=== PATIENT | female | born 1975 | race Two or more races ===

== ENCOUNTER 2022-12-25 14:27 | Outpatient (REF) | payer OTHER, SELFPAY ==
--- NOTE | ~2022-12-25 | MM_ITS ---
EXAMINATION: MM SCREENING DIGITAL BREAST TOMOSYNTHESIS, BILATERAL CLINICAL INFORMATION: Screening. Asymptomatic. The lifetime risk of breast cancer based on the Tyrer-Cuzick Model is 6.9%. COMPARISON: Mammography: This study is compared with the only prior mammogram from 2004. TECHNIQUE: Digital breast tomosynthesis is performed in both the craniocaudal and mediolateral oblique views along with computer-aided detection (CAD). Synthesized 2D images are generated from the tomosynthesis. FINDINGS: The breasts are heterogeneously dense, which may obscure small masses (ACR BI-RADS breast composition Category c). There are no significant masses, abnormal calcifications, or other abnormalities. MM/MM tomosynthesis screening BI IMPRESSION: No mammographic evidence of malignancy. ASSESSMENT: BI-RADS BI-RADS 1 - Negative RECOMMENDATION: Routine annual mammography screening. 1 year F/U This examination should not preclude the clinical evaluation of a suspicious palpable abnormality. This patient's information was entered into a reminder system with a target due date for their next mammogram.
== END 2022-12-25 14:28 | disposition home or self-care (01) ==
LOC: HO.MAMMO 14:27
PROVIDERS: PCP Internal Medicine; Visit Provider Internal Medicine
DX: Z12.31 Encounter for screening mammogram for malignant neoplasm of breast (principal)
CPT/HCPCS: 77063; 77067

== ENCOUNTER → 2022-12-25 14:30 | Outpatient (BNV) | payer OTHER, SELFPAY | PROVIDERS: PCP Internal Medicine; Visit Provider Radiology Diagnostic Radiology | DX: Z12.31 Encounter for screening mammogram for malignant neoplasm of breast (principal) | CPT/HCPCS: 77063; 77067 ==

== ENCOUNTER 2023-01-15 13:33 | Outpatient (REF) | payer OTHER, SELFPAY ==
[2023-01-15 13:40] LABS: MANUAL DIFF FLAG NO
[2023-01-15 14:24] LABS: Basophils Percent Auto 0.8 % (0-2); Eosinophils Absolute Auto 0.2 X10*3/uL (0.0-0.4); Eosinophils Percent Auto 4.1 % (0-4); Hematocrit 30.3 % (37.0-47.0); Hemoglobin 9.7 g/dl (12.0-16.0); Imm Gran Abs Auto 0.01 X10*3/uL (0.00-0.03); Imm Gran Pct Auto 0.2 % (0.0-0.4); Lymphocytes Absolute Auto 1.4 X10*3/uL (1.2-4.9); Lymphocytes Percent Auto 27.8 % (20-40); Mean Corpuscular Hemoglobin 26.2 pg (27.0-33.0); Mean Corpuscular Volume 81.9 fL (80.0-98.0); Mean Platelet Volume 9.4 fL (9.4-12.3); Monocytes Absolute Auto 0.6 X10*3/uL (0.1-1.2); Monocytes Percent Auto 12.2 % (2-11); Neutrophils Absolute Auto 2.8 x10*3/uL (2.0-8.3); Neutrophils Percent Auto 54.9 % (45-73); Platelet Count 315 X10*3/uL (160-400); Red Cell Distribution Width 14.6 % (11.0-16.0); White Blood Count 5.2 X10*3/uL (4.8-10.8)
[2023-01-15 15:31] LABS: Alanine Aminotransferase 53 U/L (0-31); Albumin Level 4.1 g/dL (3.5-5.0); Alkaline Phosphatase 149 U/L (39-117); Anion Gap 11 (12-20); Aspartate Amino Transferase 41 U/L (5-31); Bilirubin Total 0.2 mg/dL (0.0-1.0); Blood Urea Nitrogen 15 mg/dL (9-16); Calcium 9.5 mg/dL (8.4-10.2); Carbon Dioxide 26 mmol/L (22-29); Chloride 107 mmol/L (96-108); Estimated Glomerular Filt Rate > 60; Glucose Random 93 mg/dL (60-115); Potassium 3.9 mmol/L (3.3-5.1); Sodium 140 mmol/L (135-145); Total Protein 7.5 g/dL (6.5-8.0)
[2023-01-15 15:48] LABS: Thyroid Stimulating Hormone 0.37 uIU/mL (0.32-4.0)
== END 2023-01-15 13:34 | disposition home or self-care (01) ==
LOC: HO.LAB 13:33
PROVIDERS: PCP Internal Medicine; Visit Provider Internal Medicine
DX: Z00.00 Encounter for general adult medical examination without abnormal findings (principal); E04.1 Nontoxic single thyroid nodule; R53.83 Other fatigue
CPT/HCPCS: 36415; 80053; 84439; 84443; 85025

== ENCOUNTER 2023-06-10 13:36 | Outpatient (REF) | payer OTHER, SELFPAY ==
[2023-06-15 13:29] LABS: Mitochondrial Antibodies NEGATIVE (NEGATIVE)
[2023-06-16 07:33] LABS: Smooth Muscle Antibody 35 U (<20)
[2023-06-17 11:04] LABS: Anti Nuclear Antibody Screen POSITIVE (NEGATIVE)
== END 2023-06-10 13:37 | disposition home or self-care (01) ==
LOC: HO.LAB 13:36
PROVIDERS: PCP Internal Medicine; Visit Provider Internal Medicine
DX: D50.8 Other iron deficiency anemias (principal); E04.1 Nontoxic single thyroid nodule; G25.81 Restless legs syndrome; R74.01 Elevation of levels of liver transaminase levels
CPT/HCPCS: 36415; 82728; 85025; 86015; 86038; 86039; 86381; 86704; 86706; 86709; 86803; 87340

== ENCOUNTER 2023-11-05 07:32 | Day surgery (SDC) | payer OTHER, SELFPAY ==
[2023-11-03 14:19] VITALS: BMI 24.2
--- NOTE | 2023-11-04 09:08 | P.CONAN_ITS ---
Documented by User: Ivana Rollins NP 11/04/23 09:08 HPI - Anesthesia Eval Consult details Narrative: 48yo F for Colonoscopy [facility] Past Medical History Medical History (Updated 11/03/23 @ 14:18 by Arianna Caraballo RN) Nephrolithiasis Anemia Surgical History Surgical History (Updated 11/03/23 @ 14:18 by Arianna Caraballo RN) Hx of cystoscopy Social History Social History Patient Tobacco Use Status: Never used Tobacco Use of substances other than those prescribed or required for medical reasons: No Are you DNR?: No Advance Directives: No Advance Directives Information Provided: Yes Meds Allergies Allergy/AdvReac Type Severity Reaction Status Date / Time No Known Allergies Allergy Verified 11/05/23 07:42 Home Medications ?Medication ?Instructions ?Recorded ?Confirmed ?Last Taken ?Type No Known Home Meds 11/03/23 11/03/23 Unknown History Exam Height,Weight and Vital Signs: Height 5 ft 4 in Weight 63.957 kg Assessment and Plan Assessment Anesthesia Assessment: Chart Reviewed Documented by User: Niko Clark MD 11/05/23 08:08 [facility] Past Medical History Medical History (Updated 11/03/23 @ 14:18 by Arianna Caraballo RN) Nephrolithiasis Anemia Family History Family history of problems with anesthesia: No Surgical History Surgical History (Updated 11/03/23 @ 14:18 by Arianna Caraballo RN) Hx of cystoscopy History of Problems with Anesthesia: No Social History Social History Patient Tobacco Use Status: Never used Tobacco Use of substances other than those prescribed or required for medical reasons: No Are you DNR?: No Advance Directives: No Advance Directives Information Provided: Yes Meds Allergies Allergy/AdvReac Type Severity Reaction Status Date / Time No Known Allergies Allergy Verified 11/05/23 07:42 Home Medications ?Medication ?Instructions ?Recorded ?Confirmed ?Last Taken ?Type No Known Home Meds 11/03/23 11/03/23 Unknown History Exam Airway Mallampati Class: II TM Dist: >3cm Neck ROM: Full Assessment and Plan Assessment Anesthesia Assessment: Anesthesia Plan Discussed Final Anesthetic Review Family History of Problems with Anesthesia: No History of Problems with Anesthesia: No NPO: Yes ASA Class: I Patient Risk: Low Procedure Risk: Low Anesthetic Plan Anesthetic Plan: TIVA Disposition: Standard PACU
[2023-11-05 07:36] VITALS: BMI 24.0
[2023-11-05 07:52] LABS: UPreg QC Valid YES; Urine Pregnancy NEGATIVE (NEGATIVE)
[2023-11-05 07:58] VITALS: BP 119/88; PULSE 119; RESP 16; TEMP 36.3; O2SAT 99
[2023-11-05] MEDS: Lactated Ringers 1,000 ML 100 ML IVCONT (07:59)
--- NOTE | 2023-11-05 08:26 | P.HPSUR_ITS ---
Pre-Procedural Eval Section A - 24 Hr Update-Section A only Date of Service: 11/05/23 Section B - Complete if H&P > 30 days Chief Complaint: Encounter for screening for malignant neoplasm of Details of Present Illness: see H&P no changes Relevant Family History (Specify if Yes): No Relevant Social History: None Present Medications: see Short Stay Collaborative assessment Medical History: No relevant PMH History of Previous Operations: No relevant previous surgery Allergies: Allergies Allergy/AdvReac Type Severity Reaction Status Date / Time No Known Allergies Allergy Verified 11/05/23 07:42 Review of Systems Sugical H&P ROS: Negative: Constitution, Cardiovascular, Respiratory, Neurological, Psychiatric, Hem-Onc, Allergic/Immunologic, Gastrointestinal, Genitourinary, Musculoskeletal, Integumentary, Endocrine and Eyes/Ears/No se/Throat Exam Surgical H&P Exam: Normal: HEENT, Normal: Heart, Normal: Lungs, Normal: Extremities, Normal: Abdomen, Normal: Skin and Normal: Neurological Plan Diagnosis/Plan: Unchanged I have reviewed the history and physical and performed a pertinent physical examination on my patient. No changes have occurred unless specified. Time Spent With Patient Time: Total time managing care of this patient today ____ minutes.
[2023-11-05 09:12] VITALS: BP 110/66; PULSE 74; RESP 12; TEMP 36.6; O2SAT 100
--- NOTE | 2023-11-05 09:24 | OP_ITS ---
DATE OF SERVICE: 11/05/2023 SURGEON: Collins Bo MD INDICATIONS: Colon cancer screening. PREOPERATIVE DIAGNOSIS: POSTOPERATIVE DIAGNOSIS: PROCEDURE PERFORMED: Colonoscopy to the terminal ileum with biopsy. ESTIMATED BLOOD LOSS: COMPLICATIONS: ANESTHESIA: Monitored anesthesia care. ASSISTANTS: SPECIMENS: DESCRIPTION OF PROCEDURE: A history and physical were performed. The risks and benefits of the procedure were explained to the patient and informed consent was obtained. The patient was placed in the left lateral decubitus position. A digital rectal exam was performed and was found to be normal. The Olympus pediatric video colonoscope was introduced into the rectum and advanced to the cecum. The cecum was identified by transillumination, palpation, and identification of ileocecal valve. Examination was performed, and the scope was removed. She tolerated the procedure well and was returned to recovery area in stable condition. FINDINGS: The terminal ileum was examined and appeared normal. The visualized colonic mucosa was normal. The quality of the prep was good. No polyps were identified. There was nonspecific inflammation in the rectum with some focal erythema, and loss of vascular pattern. Biopsies were obtained from the mucosa. This could have been related to the prep. Retroflexed examination was otherwise normal. IMPRESSION: Normal colonoscopy. RECOMMENDATIONS: Follow up biopsy results. 10 year colon recall. MD GLORIA Hernandez/MODL / [id number] MTDD
[2023-11-05 09:27] VITALS: BP 104/64; PULSE 76; RESP 16; O2SAT 100
[2023-11-05 09:42] VITALS: BP 106/62; PULSE 70; RESP 16; TEMP 36.6; O2SAT 100
== END 2023-11-05 10:19 | disposition home or self-care (01) ==
PROVIDERS: Nurse Practitioner; PCP Internal Medicine; Visit Provider Internal Medicine Gastroenterology
PROC: 0DJD8ZZ Inspection of Lower Intestinal Tract, Via Natural or Artificial Opening Endoscopic (ICD-10-PCS; CPT 45378; principal; 2023-11-05 09:30)
DX: Z12.11 Encounter for screening for malignant neoplasm of colon (principal); D64.9 Anemia, unspecified
CPT/HCPCS: 45380; 81025; 88305; J2704

== ENCOUNTER 2024-01-12 13:45 | Outpatient (REF) | payer OTHER, SELFPAY ==
--- NOTE | ~2024-01-12 | MM_ITS ---
EXAMINATION: MM SCREENING DIGITAL BREAST TOMOSYNTHESIS, BILATERAL CLINICAL INFORMATION: Screening. Asymptomatic. COMPARISON: Mammography: This study is compared with prior exams dating back to 2022. TECHNIQUE: Digital breast tomosynthesis is performed in both the craniocaudal and mediolateral oblique views along with computer-aided detection (CAD). Synthesized 2D images are generated from the tomosynthesis. FINDINGS: The breasts are heterogeneously dense, which may obscure small masses (ACR BI-RADS breast composition Category c). There are no significant masses, abnormal calcifications, or other abnormalities. MM/MM tomosynthesis screening BI IMPRESSION: No mammographic evidence of malignancy. ASSESSMENT: BI-RADS BI-RADS 1 - Negative RECOMMENDATION: Routine annual mammography screening. 1 year F/U This examination should not preclude the clinical evaluation of a suspicious palpable abnormality. This patient's information was entered into a reminder system with a target due date for their next mammogram. Electronically signed by: Terri Santiago MD 02/08/2024 07:40 AM EDT
== END 2024-01-12 13:46 | disposition home or self-care (01) ==
LOC: HO.MAMMO 13:45
PROVIDERS: PCP Internal Medicine; Visit Provider Internal Medicine
DX: Z12.31 Encounter for screening mammogram for malignant neoplasm of breast (principal)
CPT/HCPCS: 77063; 77067

== ENCOUNTER → 2024-01-12 13:45 | Outpatient (BNV) | payer OTHER, SELFPAY | PROVIDERS: PCP Internal Medicine; Visit Provider Radiology Diagnostic Radiology | DX: Z12.31 Encounter for screening mammogram for malignant neoplasm of breast (principal) | CPT/HCPCS: 77063; 77067 ==

== ENCOUNTER 2024-02-23 12:49 | Outpatient (REF) | payer OTHER, SELFPAY ==
[2024-02-23 13:04] LABS: MANUAL DIFF FLAG NO
[2024-02-23 13:30] LABS: Basophils Percent Auto 0.7 % (0-2); Eosinophils Absolute Auto 0.5 X10*3/uL (0.0-0.4); Eosinophils Percent Auto 9.4 % (0-4); Hematocrit 34.2 % (37.0-47.0); Hemoglobin 11.2 g/dl (12.0-16.0); Imm Gran Abs Auto 0.06 X10*3/uL (0.00-0.03); Imm Gran Pct Auto 1.1 % (0.0-0.4); Lymphocytes Absolute Auto 1.3 X10*3/uL (1.2-4.9); Lymphocytes Percent Auto 23.8 % (20-40); Mean Corpuscular HGB Conc 32.7 g/dl (31.0-35.0); Mean Corpuscular Hemoglobin 28.8 pg (27.0-33.0); Mean Corpuscular Volume 87.9 fL (80.0-98.0); Mean Platelet Volume 9.5 fL (9.4-12.3); Monocytes Absolute Auto 0.6 X10*3/uL (0.1-1.2); Monocytes Percent Auto 10.1 % (2-11); Neutrophils Percent Auto 54.9 % (45-73); Platelet Count 302 X10*3/uL (160-400); Red Blood Count 3.89 X10*6/uL (4.20-5.50); Red Cell Distribution Width 13.4 % (11.0-16.0); White Blood Count 5.5 X10*3/uL (4.8-10.8)
[2024-02-23 14:28] LABS: Ferritin 17 ng/mL (10-250)
[2024-02-23 14:31] LABS: Anion Gap 9 (12-20)
[2024-02-23 14:35] LABS: Alanine Aminotransferase 102 U/L (0-31); Albumin Level 3.7 g/dL (3.5-5.0); Alkaline Phosphatase 234 U/L (39-117); Aspartate Amino Transferase 117 U/L (5-31); Bilirubin Total 0.1 mg/dL (0.0-1.0); Blood Urea Nitrogen 14 mg/dL (9-16); Calcium 9.4 mg/dL (8.4-10.2); Carbon Dioxide 27 mmol/L (22-29); Chloride 107 mmol/L (96-108); Estimated Glomerular Filt Rate > 60; Glucose Random 102 mg/dL (60-115); Potassium 4.3 mmol/L (3.3-5.1); Sodium 139 mmol/L (135-145); Total Protein 7.2 g/dL (6.5-8.0)
[2024-02-24 17:04] LABS: Follicle Stimulating Hormone 22.6 mIU/mL
== END 2024-02-23 12:50 | disposition home or self-care (01) ==
LOC: HO.LAB 12:49
PROVIDERS: PCP Internal Medicine; Visit Provider Internal Medicine
DX: Z00.00 Encounter for general adult medical examination without abnormal findings (principal); R74.01 Elevation of levels of liver transaminase levels; N95.1 Menopausal and female climacteric states; D50.8 Other iron deficiency anemias
CPT/HCPCS: 36415; 80053; 82728; 83001; 85025

== ENCOUNTER 2024-03-21 09:37 | Outpatient (REF) | payer OTHER, SELFPAY ==
--- NOTE | ~2024-03-21 | US_ITS ---
EXAMINATION: US ABDOMEN COMPLETE CLINICAL INFORMATION: Elevated LFTs. COMPARISON: None available. TECHNIQUE: Real-time imaging of the abdominal viscera. FINDINGS: PANCREAS: Normal. ABDOMINAL AORTA: The proximal, mid, and distal segments are normal in caliber. INFERIOR VENA CAVA: Visualized portions are normal. LIVER: The liver is normal in size. The liver contour is normal. There is borderline increased liver parenchymal echogenicity suggesting hepatic steatosis. No focal hepatic lesion. There is no intrahepatic biliary duct dilatation seen. GALLBLADDER: Normal. The gallbladder is physiologically distended without evidence of stones, sludge, polyps, wall thickening or pericholecystic fluid. COMMON BILE DUCT: Normal in caliber measuring 0.4 cm in diameter. RIGHT KIDNEY: Normal. No hydronephrosis. No renal calculi or focal parenchymal lesions. The kidney measures 9.4 cm in maximum dimension. LEFT KIDNEY: Normal. No hydronephrosis. No renal calculi or focal parenchymal lesions. The kidney measures 10.6 cm in maximum dimension. SPLEEN: Normal. The spleen measures 8.9 cm in maximum dimension. FREE FLUID: None. US/US abdomen complete IMPRESSION: Borderline increased echogenicity of the liver suggesting hepatic steatosis. Electronically signed by: Willy Sheffield MD 05/20/2024 12:15 PM [facility]
== END 2024-03-21 09:38 | disposition home or self-care (01) ==
LOC: HO.US 09:37
PROVIDERS: PCP Internal Medicine; Visit Provider Internal Medicine
DX: R74.01 Elevation of levels of liver transaminase levels (principal)
CPT/HCPCS: 76700

== ENCOUNTER 2024-06-20 12:44 | Outpatient (REF) | payer OTHER, SELFPAY ==
[2024-06-20 14:18] LABS: Alanine Aminotransferase 24 U/L (0-31); Albumin Level 3.9 g/dL (3.5-5.0); Alkaline Phosphatase 126 U/L (39-117); Aspartate Amino Transferase 26 U/L (5-31); Bilirubin Direct < 0.2 mg/dL (0.0-0.5); Bilirubin Total 0.2 mg/dL (0.0-1.0); Iron 55 mcg/dL (30-160); Percent Iron Saturation 17 % (15-50); Total Iron Binding Capacity 328 mcg/dL (228-428); Unsaturated Iron Binding 273 ug/dL
[2024-06-20 14:29] LABS: Ferritin 14 ng/mL (10-250)
[2024-06-21 10:39] LABS: Alpha 1 Anti-trypsin 136 mg/dL (83-199); Ceruloplasmin 25 mg/dL (14-48)
[2024-06-27 00:49] LABS: FIB-ALT 17 U/L (6-29); FIB-Alpha-2-Macroglobulin 160 mg/dL (106-279); FIB-Apolipoprotein A1 131 mg/dL (101-198); FIB-GGT 53 U/L (3-70); FIB-Haptoglobin 172 mg/dL (43-212); FIB-Total Bilirubin 0.3 mg/dL (0.2-1.2); Liver Fibrosis Score 0.11; Liver Fibrosis Stage F0; Nec Inflam Act Grade A0; Nec Inflam Act Score 0.05; Reference ID 5294466
== END 2024-06-20 12:45 | disposition home or self-care (01) ==
LOC: HO.LAB 12:44
PROVIDERS: PCP Internal Medicine; Visit Provider Internal Medicine Gastroenterology
DX: R79.89 Other specified abnormal findings of blood chemistry (principal)
CPT/HCPCS: 36415; 80076; 81596; 82103; 82390; 82728; 83540

== ENCOUNTER 2024-08-29 13:50 | Outpatient (REF) | payer OTHER, SELFPAY ==
[2024-08-29 14:10] LABS: MANUAL DIFF FLAG NO
[2024-08-29 14:31] LABS: Basophils Percent Auto 0.6 % (0-2); Eosinophils Absolute Auto 0.3 X10*3/uL (0.0-0.4); Eosinophils Percent Auto 6.4 % (0-4); Hematocrit 33.8 % (37.0-47.0); Hemoglobin 11.2 g/dl (12.0-16.0); Imm Gran Abs Auto 0.01 X10*3/uL (0.00-0.03); Imm Gran Pct Auto 0.2 % (0.0-0.4); Lymphocytes Absolute Auto 1.3 X10*3/uL (1.2-4.9); Mean Corpuscular HGB Conc 33.1 g/dl (31.0-35.0); Mean Corpuscular Volume 87.6 fL (80.0-98.0); Mean Platelet Volume 9.4 fL (9.4-12.3); Monocytes Absolute Auto 0.6 X10*3/uL (0.1-1.2); Monocytes Percent Auto 11.9 % (2-11); Neutrophils Absolute Auto 2.5 x10*3/uL (2.0-8.3); Neutrophils Percent Auto 52.9 % (45-73); Platelet Count 301 X10*3/uL (160-400); Red Blood Count 3.86 X10*6/uL (4.20-5.50); White Blood Count 4.7 X10*3/uL (4.8-10.8)
[2024-08-29 15:16] LABS: Alanine Aminotransferase 47 U/L (0-31); Alkaline Phosphatase 160 U/L (39-117); Anion Gap 8 (12-20); Aspartate Amino Transferase 31 U/L (5-31); Bilirubin Total 0.4 mg/dL (0.0-1.0); Blood Urea Nitrogen 13 mg/dL (9-16); Calcium 9.3 mg/dL (8.4-10.2); Carbon Dioxide 30 mmol/L (22-29); Chloride 107 mmol/L (96-108); Estimated Glomerular Filt Rate > 60; Glucose Random 87 mg/dL (60-115); Potassium 4.3 mmol/L (3.3-5.1); Sodium 141 mmol/L (135-145); Total Protein 7.3 g/dL (6.5-8.0)
[2024-08-29 15:31] LABS: Ferritin 13 ng/mL (10-250)
== END 2024-08-29 13:51 | disposition home or self-care (01) ==
LOC: HO.LAB 13:50
PROVIDERS: PCP Internal Medicine; Visit Provider Internal Medicine
DX: D50.8 Other iron deficiency anemias (principal); M22.2X2 Patellofemoral disorders, left knee; M25.512 Pain in left shoulder; R74.01 Elevation of levels of liver transaminase levels
CPT/HCPCS: 36415; 80053; 82728; 85025

== ENCOUNTER 2024-09-28 12:10 | Outpatient (REF) | payer OTHER, SELFPAY ==
[2024-09-28 13:05] LABS: Alanine Aminotransferase 32 U/L (0-31); Alkaline Phosphatase 123 U/L (39-117); Aspartate Amino Transferase 38 U/L (5-31); Bilirubin Direct < 0.2 mg/dL (0.0-0.5); Bilirubin Total 0.2 mg/dL (0.0-1.0); Total Protein 7.4 g/dL (6.5-8.0)
== END 2024-09-28 12:11 | disposition home or self-care (01) ==
LOC: HO.LAB 12:10
PROVIDERS: PCP Internal Medicine; Visit Provider Internal Medicine Gastroenterology
DX: R79.89 Other specified abnormal findings of blood chemistry (principal)
CPT/HCPCS: 36415; 80076

== ENCOUNTER 2025-04-11 13:43 | Outpatient (REF) | payer OTHER, SELFPAY ==
--- OUTSIDE RECORDS SUMMARY | 2023-11-05 03:40 | XMS_ITS ---
Author Organization [facility] Address [address] [place] [address] Care Team Providers Care Labor Economics Professor Name Role Phone Rosy Ibarra Primary Care Provider Unavailab Collins Purcell Jr REASON FOR VISIT screening Encounters Encounter Location Date Provider Diagnosis [facility] [address] [place] [phone] 11/05/2023 Collins Bo Jr Encounter for screening colonoscopy Z12.11 Assessments Encounter Date Diagnosis (ICD Code) Assessment Notes Treatment Notes Treatment Clinical Notes Section Notes 11/05/2023 Encounter for screening colonoscopy (ICD-10 - Z12.11) Plan Of Treatment Next Appt Details Provider Name:Collins lester Jr, 05/09/2025 11:20:00 AM, [address] [facility], [address], [place], [address], Progress Notes * BENTLEY GOLDSMITHDOB: [birth year] (50 yo F)Acc No.[id number]:11/05/2023 COLON WITH MAC Patient: JASSON SANTILLANICA Provider: Lexis Bo MD :1975 A ge:48 Y S ex:Female Date:11/05/2023 Address:[address] [place] [address] [place], [id number] Pcp:Rosy Ibarra Subjective: * Chief Complaints: * 1 . Screening. * Medical History: Objective: * Vitals: Assessment: * Assessment: 1. E ncounter for screening colonoscopy - Z12.11 (Primary) Plan: * Treatment: * Procedure Codes: 4 5380 COLONOSCOPY AND BIOPSY * * The named appointment provid er may or may not be the originator of this progress note, and it is not deemed complete until electronically signed by the appointment provider. Sign off status: Pending * Provider: Lexis Bo MD Date: 0 11/05/2023 Generated for Kim melgar/Ariel/Melaniaitting on: 06/11/2024 04:35 PM EST
--- OUTSIDE RECORDS SUMMARY | 2025-01-04 08:55 | XMS_ITS ---
Author Organization [facility] Address [address] [place] [address] Care Team Providers Care Measurement Advisor Name Role Phone Rosy Ibarra Primary Care Provider Unavailab tana Bo Jr, Collins Bruno [phone] REASON FOR VISIT Patient presents today for a 3 month f/u elevated liver blood work Encounters Encounter Location Date Provider Diagnosis [facility] [address] [place] [address] 01/04/2025 Collins Bo Jr Plan Of Treatment Next Appt Details Provider Name:Collins lester Jr, 05/09/2025 11:20:00 AM, [address], [address], [place], [address], Progress Notes * BENTLEY GOLDSMITHDOB: [birth year] (50 yo F)Acc No.[id number]:01/04/2025 Progress Notes Patient: BENTLEY SANTILLAN Provider: Lexis Bo MD :1975 A ge:50 Y S ex:Female Date:01/04/2025 Address: [address] [place], [place] Pcp:Rosy Ibarra Subjective: * Chief Complaints: * 1 . Patient presents today for a 3 month f/u elevated liver blood work. * Medical History: Objective: * Vitals: Assessment: Plan: * Treatment: * * The named appointment provid er may or may not be the originator of this progress note, and it is not deemed complete until electronically signed by the appointment provider. Sign off status: Pending * Provider: Lexis Bo MD Date: 0 01/04/2025 Generated for Kim melgar/Ariel/Ama on: 06/11/2024 04:36 PM EST
--- OUTSIDE RECORDS SUMMARY | 2025-04-11 16:36 | XMS_ITS | Patient Health Record ---
Author Organization [facility] Address [address] [place] [address] Care Team Providers Care Plasterer Apprentice Name Role Phone Donnholden Rosy Primary Care Provider Unavailab Clolins Purcell Jr Unavailable Allergies No Known Allergies Results Component Value Reference Range Notes Liver Panel Reviewed date:06/26/2024 12:51:04 PM Interpretation: Performing Lab:[facility], [address] [place] [phone] Notes/Report: Bilirubin Total 0.2 0.0-1.0 mg/dL Bilirubin Direct < 0.2 0.0-0.5 mg/dL Aspartate Amino Transferase 26 5-31 U/L Alanine Aminotransferase 24 0-31 U/L Total Protein 7.0 6.5-8.0 g/dL Albumin Level 3.9 3.5-5.0 g/dL Alkaline Phosphatase 126 39-117 U/L IRON PROFILE Reviewed date:06/26/2024 12:50:48 PM Interpretation: Performing Lab:[facility], [address] [place] [phone] Notes/Report: Iron 55 30-160 mcg/dL Total Iron Binding Capacity 328 228-428 mcg/d L Percent Iron Saturation 17 15-50 % Unsaturated Iron Binding 273 Ferritin Reviewed date:06/26/2024 12:50:37 PM Interpretation: Performing Lab:[facility], [address] [place] [phone] Notes/Report: Ferritin 14 10-250 ng/mL Ceruloplasmin Reviewed date:06/27/2024 04:02:46 PM Interpretation: Performing Lab:[facility], [address] [place] [phone] Notes/Report: Ceruloplasmin 25 14-48 mg/dL THIS TEST WAS PERFORMED AT: [facility] [address] [place] [phone] CHARMAINE RUSS MD Alpha 1 Anti-trypsin Reviewed date:06/27/2024 04:02:38 PM Interpretation: Performing Lab:[facility], [address] [place] [phone] Notes/Report: Alpha 1 Anti-trypsin 136 83-199 mg/dL THIS TEST WAS PERFORMED AT: [facility] [address] [place] [phone] CHARMAINE RUSS MD Liver Fibrosis Pnl Reviewed date:06/27/2024 04:02:32 PM Interpretation: Performing Lab:[facility], [address] [place] [phone] Notes/Report: Liver Fibrosis Score 0.11 Liver Fibrosis Stage F0 Liver Fibrosis Interpretation SEE NOTE no fibrosis Fibro Test Score (f) Metavir Score f>=0 and f<=0.21 : F0 (no fibrosis) f>0.21 and f<=0.27 : F0-F1 (no fibrosis) f>0.27 and f<=0.31 : F1 (minimal fibrosis) f>0.31 and f<=0.48 : F1-F2 (minimal fibrosis) f>0.48 and f<=0.58 : F2 (moderate fibrosis) f>0.58 and f<=0.72 : F3 (advanced fibrosis) f>0.72 and f<=0.74 : F3-F4 (advanced fibrosis) f>0.74 and f<=1.00 : F4 (severe fibrosis) Nec Inflam Act Score 0.05 Nec Inflam Act Grade A0 Nec Inflam Act Interpretation SEE NOTE no activity ActiTest Score (a) Metavir Score a>=0 and a<=0.17 : A0 (no activity) a>0.17 and a<=0.29 : A0-A1 (no activity) a>0.29 and a<=0.36 : A1 (minimal activity) a>0.36 and a<=0.52 : A1-A2 (minimal activity) a>0.52 and a<=0.60 : A2 (significant activity) a>0.60 and a<=0.62 : A2-A3 (significant activity) a>0.62 and a<=1.00 : A3 (severe activity) YWQ-Umcei-1-Macroglobulin 160 106-279 mg/dL FIB-Haptoglobin 172 43-212 mg/dL FIB-Apolipoprotein A1 131 101-198 mg/dL FIB-Total Bilirubin 0.3 0.2-1.2 mg/dL FIB-GGT 53 3-70 U/L FIB-ALT 17 6-29 U/L Reference ID [id number] Footnote SEE NOTE The reliability of results is dependent on compliance with the preanalytical and analytical conditions recommended by [employer]. The tests have to be deferred for: acute hemolysis, acute hepatitis, acute inflammation, extra hepatic cholestasis. The advice of a specialist should be sought for interpretation in chronic hemolysis and Gilbert's syndrome. The test interpretation is not validated in liver transplant patients. Isolated extreme values of one of the components should lead to caution in interpreting the results. In case of discordance between a biopsy result and a test, it is recommended to seek the advice of a specialist. The causes of these discordances could be due to a flaw of the test or to a flaw in the biopsy: i.e. a liver biopsy has a 33% variability rate for one fibrosis stage. FibroTest is interpretable for chronic hepatitis B and C, alcoholic and non alcoholic steatosis. ActiTest is interpretable for chronic hepatitis B and C. The performance characteristics have been determined by [facility]. It has not been cleared or approved by the U.S. Food and Drug Administration. Performance characteristics refer to the analytical performance of the test. [employer], [employer], the associated logo, [employer] and all associated [employer] stacy are the registered trademarks of [employer]. All third green party stacy - (R) and (TM) - are the property of their respective owners. (C) 1973-3627 [employer]. All rights reserved. THIS TEST WAS PERFORMED AT: [employer] [facility] [address] [place] [address] SAEID BLACKWELL MD,PHD,CHINTAN Liver Panel Reviewed date:10/02/2024 08:14:30 AM Interpretation: Performing Lab:[facility], [address], [place] [address] Notes/Report: Bilirubin Total 0.2 0.0-1.0 mg/dL Bilirubin Direct < 0.2 0.0-0.5 mg/dL Aspartate Amino Transferase 38 5-31 U/L Slight Hemolysis.Interpret result with caution. Alanine Aminotransferase 32 0-31 U/L Total Protein 7.4 6.5-8.0 g/dL Albumin Level 4.0 3.5-5.0 g/dL Alkaline Phosphatase 123 39-117 U/L Reason For Referral No Information Medications Medication SIG (Take, Route, Fr equency, Duration) Notes Start Date End Date Status Aleve Not-Taking tylenol Not-Taking Immunizations Vaccine Route Administration Date Status Comme nts Influenza Unknown 05/09/2024 Administered Social History Tobacco Use: Social History Observation Description Date Details (start date - stop date) Never Smoker NA - NA Tobacco Use/Smoking Question Answer Notes Patient is a nonsmoker Alcohol Screen Question Answer Notes Did you have a drink contain ing alcohol in the past year? Yes How often did you have a dri nk containing alcohol in the past year? Never (0 point) How many drinks did you have on a typical day when you were drinking in the past year? 1 or 2 drinks (0 point) How often did you have 6 or more drinks on one occasion in the past year? Never (0 point) Points 0 Interpretation Negative Problems Problem Type SNOMED Code ICD Code Onset Dates Problem Status W/U Status Risk Notes Problem Colon cancer screening (727782366) Colon cancer screening (Z12.11) Active confirmed Problem Blood chemistry abnormal (042421805) Other specified abnormal findings of blood chemistry (R79.89) Active confirmed Problem Anemia (973795911) Anemia, unspecified type (D64.9) Active confirmed Vital Signs Temperature 96.8 degrees Fahrenheit 05/29/2024 Blood pressure diastolic 00 mm Hg 05/29/2024 Height 5 ft 4 in in 05/29/2024 Blood pressure systolic 000 mm Hg 05/29/2024 Weight 135 lbs 05/29/2024 BMI 23.17 kg/m2 05/29/2024 Encounters Encounter Location Date Provider Diagnosis [address] [place] [address] 05/29/2024 Collins Bo Jr Elevated LFTs R79.89 [facility] [address] [place] [address] 06/27/2024 Collins Bo Jr Other specified abnormal findings of blood chemistry R79.89 [facility] [address] [facility] [address] [place] [address] 10/02/2024 Collins Bo Jr Abnormal LFTs R79.89 Assessments Encounter Date Diagnosis (ICD Code) Assessment Notes Treatment Notes Treatment Clinical Notes Section Notes 05/29/2024 Elevated LFTs (ICD-10 - R79.89) Liver disease - resources material was printed Her elevated liver function tests should be evaluated further. She will have laboratory studies, and may need further evaluation with liver biopsy pending results. Fatty liver seems likely based on her ultrasound reports but the possibility of autoimmune liver disease will need to be ruled out based on her testing today. We discussed this as well. She will followup in 6 months. Today's visit was 40 minutes. 06/27/2024 Other specified abnormal findings of blood chemistry (ICD-10 - R79.89) To be done in 3 months. 10/02/2024 Abnormal LFTs (ICD-10 - R79.89) Plan Of Treatment Pending Test Test Name Order Date LIVER PROFILE 05/29/2024 LIVER PROFILE 06/27/2024 LIVER PROFILE 10/02/2024 IRON + IBC (FE) 05/29/2024 FERRITIN 05/29/2024 [id number] (A1A) 05/29/2024 CERULOPLASMIN 05/29/2024 Liver Fibrosis Pnl 05/29/2024 Future Test Test Name Order Date COLONOSCOPY 09/30/2023 Next Appt Details Provider Name:Collins lester Jr, 05/09/2025 11:20:00 AM, [address] [facility], [address], [place], [address], Insurance Providers Payer Name Payer Address Payer Phone Subscriber Number Group Number Insured Name Patient Relationship to Insured Coverage Start Date Coverage End Date [facility] [address] [place] [phone] [id number] BENTLEY GOLDSMITH Self - patient is the insured Medical (General) History Medical History History ICD Code Nephrolithiasis Anemia Elevated liver function tests Surgical History Surgery Date(Month/Year) Cystoscopy 02/06
== END 2025-04-11 13:44 | disposition home or self-care (01) ==
LOC: HO.MAMMO 13:43
PROVIDERS: PCP Internal Medicine; Visit Provider Internal Medicine
DX: Z12.31 Encounter for screening mammogram for malignant neoplasm of breast (principal)
CPT/HCPCS: 77063; 77067

== ENCOUNTER → 2025-04-11 13:45 | Outpatient (BNV) | payer OTHER, SELFPAY | PROVIDERS: PCP Internal Medicine; Visit Provider Internal Medicine | DX: Z12.31 Encounter for screening mammogram for malignant neoplasm of breast (principal) | CPT/HCPCS: 77063; 77067 ==